=== PATIENT | male | born 1985 | race Caucasian/White ===

== ENCOUNTER 2019-04-19 20:35 | Emergency (ER) | payer OTHER ==
[2019-04-19] MEDS ORDERED: Ketorolac 60 MG/2 ML SDV IM ONE (21:42)
[2019-04-19] MEDS ORDERED: predniSONE 20 MG Tab PO ONE (21:42)
[2019-04-19] MEDS ORDERED: Diazepam 5 MG Tab PO ONE (21:43)
--- NOTE | 2019-04-19 21:51 | EDM.PDOC ---
ED HPI GENERAL MEDICAL PROBLEM - General Chief Complaint: Back Pain or Injury Stated Complaint: BACK PAIN Time Seen by Provider: 04/19/19 21:33 - History of Present Illness INITIAL COMMENTS - FREE TEXT/NARRATIVE: HISTORY AND PHYSICAL: History of present illness: The patient is a 33-year-old male who is here working [place] and has a history of left sciatica and disc problems that were diagnosed by an MRI about a year and a half ago and he tells me that he was told that he should' ve had surgery but he was unable to do that; he says that his family practice doctor at home gives him a steroid injections and that has helped but over the last few days he has been doing a bit more activity and asked evening he made a sudden movement and he felt sudden pain which brought him to his knees. Says the pain has been very severe and radiating down his left leg similar to his prior back and sciatica pain but it was just worse and he needs to get back to work. This new exacerbation started last evening. He has had no loss of bowel or bladder and no bowel or bladder disturbances and no midline back pain and he denies any recent trauma. He has no numbness weakness to his extremities but he says the pain originates in his lower back and shoots down his leg which is classic for his prior episodes. He has no other systemic complaints and is eating and drinking normally Review of systems: As per history of present illness and below otherwise all systems reviewed and negative. Past medical history: As per history of present illness and as reviewed below otherwise noncontributory. Surgical history: As per history of present illness and as reviewed below otherwise noncontributory. Social history: No reported history of drug or alcohol abuse. Family history: As per history of present illness and as reviewed below otherwise noncontributory. Physical exam: General: Well-developed well-nourished man who looks uncomfortable with movement vital signs are noted by me HEENT: Atraumatic, normocephalic, negative for conjunctival pallor or scleral icterus, mucous membranes moist, throat clear, neck supple, nontender, trachea midline. Lungs: Clear to auscultation, breath sounds equal bilaterally, chest nontender. Heart: S1S2, regular in rhythm no overt murmurs Abdomen: Soft, nondistended, nontender. Negative for masses or hepatosplenomegaly. Negative for costovertebral tenderness. Pelvis: Stable nontender. Genitourinary: Deferred. Rectal: Deferred. Extremities: Atraumatic, negative for cords or calf pain. Neurovascular unremarkable. Neuro: Awake, alert, oriented. Cranial nerves II through XII unremarkable. Cerebellum unremarkable. Motor and sensory unremarkable throughout. Exam nonfocal. Dorsi and plantar flexion are intact 5/5 inclusive of the great toe bilaterally and the patient has good strength in his lower extremities and normal tone. Back: There are no midline step-offs or defects of the thoracic or lumbar spine but there is diffuse paraspinal tenderness in the lumbar region extending into the buttock on the Diagnostics: [] Therapeutics: IM Toradol oral Valium and prednisone Impression: Left lumbar back pain/sciatica acute on chronic Definitive disposition and diagnosis as appropriate pending reevaluation and review of above. Back Pain Score (Numeric/FACES): 9 - Related Data Allergies Allergy/AdvReac Type Severity Reaction Status Date / Time No Known Allergies Allergy Verified 04/19/19 20:40 Home Meds: Home Meds Non-Formulary Medication [NF Drug] 1 each INJECT 04/19/19 [History] oxyCODONE HCl/Acetaminophen [Oxycodone-Acetaminophen 10-300] 1 each PO ASDIRECTED 04/19/19 [History] Past Medical History - Infectious Disease History Infectious Disease History: Reports: None - Past Surgical History Cardiovascular Surgical History: Reports: Other (See Below) Other Cardiovascular Surgeries/Procedures: heart surgery at 3 y/o. hole in heart Social & Family History - Family History Family Medical History: Noncontributory - Tobacco Use Smoking Status *Q: Current Every Day Smoker Years of Tobacco use: 15 Packs/Tins Daily: 2 - Caffeine Use Caffeine Use: Reports: Coffee, Energy Drinks, Soda, Tea - Recreational Drug Use Recreational Drug Use: No ED ROS GENERAL - Review of Systems Review Of Systems: ROS reveals no pertinent complaints other than HPI. ED EXAM, GENERAL - Physical Exam Exam: See Below (see dictation) Course - Vital Signs Last Recorded V/S: Last Vital Signs Temp 35.8 C 04/19/19 20:42 Pulse 92 04/19/19 20:42 Resp 18 04/19/19 20:42 BP 146/74 H 04/19/19 20:42 Pulse Ox 94 L 04/19/19 20:42 - Orders/Labs/Meds Meds: Medications Discontinued Medications Generic Name Dose Route Start Last Admin Trade Name Annabel PRN Reason Stop Dose Admin Diazepam 5 mg 04/19/19 21:43 Valium. PO 04/19/19 21:44 ONETIME ONE Ketorolac Tromethamine 60 mg 04/19/19 21:42 Toradol IM 04/19/19 21:43 ONETIME ONE Prednisone 20 mg 04/19/19 21:42 Prednisone PO 04/19/19 21:43 ONETIME ONE Departure - Departure Time of Disposition: 21:50 Disposition: Home, Self-Care 01 Condition: Good Clinical Impression: Acute exacerbation of chronic low back pain Sciatica Qualifiers: Laterality: left Qualified Code(s): M54.32 - Sciatica, left side - Discharge Information Referrals: PCP,None [Primary Care Provider] - Additional Instructions: The following information is given to patients seen in the emergency department who are being discharged to home. This information is to outline your options for follow-up care. We provide all patients seen in our emergency department with a follow-up referral. The need for follow-up, as well as the timing and circumstances, are variable depending upon the specifics of your emergency department visit. If you don't have a primary care physician on staff, we will provide you with a referral. We always advise you to contact your personal physician following an emergency department visit to inform them of the circumstance of the visit and for follow-up with them and/or the need for any referrals to a consulting specialist. The emergency department will also refer you to a specialist when appropriate. This referral assures that you have the opportunity for followup care with a specialist. All of these measure are taken in an effort to provide you with optimal care, which includes your followup. Under all circumstances we always encourage you to contact your private physician who remains a resource for coordinating your care. When calling for followup care, please make the office aware that this follow-up is from your recent emergency room visit. If for any reason you are refused follow-up, please contact the [facility] emergency department at and ask to speak to the emergency department charge nurse. [facility] Primary care- Internal [place] [address] Continue to do all movements slowly and apply heat or ice as you choose. Use medications as needed and directed. Please connect with your provider at home or one of hours for reevaluation and further care and return to ER as needed and as discussed
== END 2019-04-19 22:14 | disposition home or self-care (01) ==
LOC: MW.ED 20:35
DX: M54.42 Lumbago with sciatica, left side (principal); F17.210 Nicotine dependence, cigarettes, uncomplicated
CPT/HCPCS: 96372; 99283; A9270; J1885